=== PATIENT | female | born 1965 | race Caucasian/White ===

== ENCOUNTER → 2022-10-17 | Outpatient (CLI) | payer BC ==
--- NOTE | 2022-10-17 13:12 | MR ---
EXAMINATION TYPE: MR knee LT wo con DATE OF EXAM: 10/17/2022 COMPARISON: Outside left knee x-ray September 24, 2022 HISTORY: Left knee pain, injury 5 weeks ago. TECHNIQUE: Multiplanar, multisequence images of the knee is performed without IV contrast. FINDINGS: MEDIAL MENISCUS: Anterior and posterior horns are intact without tear. LATERAL MENISCUS: Anterior and posterior horns are intact without tear. CRUCIATE LIGAMENTS: The anterior and posterior cruciate ligaments are intact and unremarkable. COLLATERAL LIGAMENTS: The medial collateral ligament and lateral collateral ligament complex are inta ct and unremarkable. EXTENSOR MECHANISM: Visualized quadriceps and patellar tendons are intact. EFFUSION: No significant suprapatellar joint effusion. POPLITEAL CYST: Small size popliteal/rivera cyst. Just superior to this there is multi septated cystic change probable ganglion cyst posterior to the distal femoral metaphysis medially. TRICOMPARTMENT SPACES: Mild to moderate narrowing and spurring patellofemoral compartment. Mild to mo derate narrowing medial greater than lateral tibiofemoral compartments. CARTILAGE: Some cartilaginous loss and fissuring along the posterior patellar pole greatest medially. BONE MARROW SIGNAL: Areas of heterogeneous increased T2 signal involving the anterior medial tibial p lateau articular surface with a subtle linear diminished T1 signal seen best sagittal image 11. OTHER: No additional significant abnormality is appreciated. IMPRESSION: 1. There is a nondisplaced subtle subchondral fracture or injury to the anterior aspect of the medial tibial plateau with associated surrounding osseous contusion injury. No significant step-off is note d. 2. Mild to moderate tricompartment degenerative changes greatest patellofemoral compartment as detail ed above. 3. Small popliteal cyst.
== END | disposition home or self-care (01) ==
LOC: RADMRIMAIN 11:55
PROVIDERS: ATTEND Orthopaedic Surgery
DX: S80.02XA Contusion of left knee, initial encounter (principal); M17.12 Unilateral primary osteoarthritis, left knee; M71.22 Synovial cyst of popliteal space [Baker], left knee

== ENCOUNTER 2022-12-24 06:28 | Day surgery (SDC) | payer BC ==
--- NOTE | 2022-12-23 12:34 | P.HPOR ---
History of Present Illness H&P Date: 12/23/22 Subjective: This is a 57 year old female that presents today for initial evaluation regarding a several year history of progressively worsening right and left hand paresthesias in the thumb, index, middle and ring fingers with the right side being much more severe than the left. She also notes a 1 year history of left middle finger locking, catching and clicking. The patient has tried braces and NSAIDs with little relief. She says her right hand is constantly numb and wakes her up from sleep at night. They deny any inciting event or neck pain. Physical Examination: RUE: AIN/PIN/Radial/Ulnar/Median motor intact. Radial/Ulnar/Median SILT. 2+/4 Radial/Ulnar pulses palpated. 4/5 APB, 5/5 FDI. Negative Finkelsteins, negative CMC grind, positive Durkan's compression. LUE: AIN/PIN/Radial/Ulnar/Median motor intact. Radial/Ulnar/Median SILT. 2+/4 Radial/Ulnar pulses palpated. 5/5 APB, 5/5 FDI. Negative Finkelsteins, negative CMC grind, positive Durkan's compression. TTP over A1 rosanna with locking and catching of digit with ROM. Impression: 1.) Right carpal tunnel syndrome 2.) Left carpal tunnel syndrome 3.) Left middle finger trigger finger Plan: Diagnosis and treatment options were discussed with the patient. The patient has failed conservative treatment and would like to pursue a right endoscopic vs open carpal tunnel release. Risks and benefits of surgery including bleeding, infection, damage to surrounding tissue, need for further surgery, possible need to convert to open procedure, residual numbness were discussed and the patient wished to go forward with surgery. She would like to hold off on any treatment for the left side until she is healed on her right side. Pre-op labs are ordered. CC: Sara Serrano DO Orthopedic Hand/Upper Extremity Surgeon Past Medical History Past Medical History: GERD/Reflux, Musculoskeletal Disorder Additional Past Medical History / Comment(s): Crohn's disease History of Any Multi-Drug Resistant Organisms: None Reported Past Surgical History: Appendectomy, Bowel Resection, Section, Cholecystectomy, Uterine Ablation Additional Past Surgical History / Comment(s): C/S x4, D & C, bowel resection x2, explorary laparotomies Past Anesthesia/Blood Transfusion Reactions: No Reported Reaction Additional Past Anesthesia/Blood Transfusion Reaction / Comment(s): doesn't require much anesthesia or is slow to wake up Smoking Status: Current every day smoker Medications and Allergies Home Medications Medication Instructions Recorded Confirmed Type Calcium Carbonate [Calcium] 600 mg PO DAILY 12/19/22 12/19/22 History Cholecalciferol [Vitamin D3 (25 25 mcg PO DAILY 12/19/22 12/19/22 History Mcg = 1000 Iu)] Cyanocobalamin (Vitamin B-12) 1,000 mcg PO DAILY 12/19/22 12/19/22 History [Vitamin B-12] Folic Acid 0.4 mg PO DAILY 12/19/22 12/19/22 History Omeprazole [PriLOSEC] 20 mg PO HS 12/19/22 12/19/22 History Ustekinumab [Stelara] 90 mg SQ Q30D 12/19/22 12/19/22 History Allergies Allergy/AdvReac Type Severity Reaction Status Date / Time adalimumab [From Humira] Allergy caused Verified 12/19/22 09:31 lupus symptoms Physical Examination Osteopathic Statement: *. No significant issues noted on an osteopathic structural exam other than those noted in the History and Physical/Consult.
[2022-12-24] MEDS ORDERED: ONDANSETRON 4 MG/2 ML VIAL IVP ONE (06:46)
[2022-12-24] MEDS ORDERED: LACTATED RINGERS 1,000 ML IV SCH (06:46)
[2022-12-24] MEDS ORDERED: DEXAMETHASONE SOD PHOSPHATE 4 MG/ML 1 ML VIAL IV ONE (06:46)
[2022-12-24] MEDS ORDERED: LIDOCAINE 1% (10MG/ML) FOR IV START INTRADERMA PRN (06:46)
[2022-12-24] MEDS ORDERED: MIDAZOLAM 2 MG/2 ML VIAL IV PRN (07:00)
[2022-12-24] MEDS ORDERED: HYDROmorphone 0.5 MG/0.5 ML SYRINGE IVP PRN (07:00)
[2022-12-24 07:09] LABS: Glucose,Whole Blood 114 mg/dL (70-110)
[2022-12-24 07:10] VITALS: TEMP 97.8
[2022-12-24] MEDS ORDERED: BUPIVACAINE (PF) 0.5% 30 ML VIAL SQ ONE ×2 (07:24→07:38)
[2022-12-24] MEDS ORDERED: fentaNYL (PF) 50 MCG/ML 2 ML AMP ONE (07:26)
[2022-12-24] MEDS ORDERED: PROPOFOL 10 MG/ML 20 ML VIAL IV ONE (07:26)
[2022-12-24] MEDS ORDERED: MIDAZOLAM 2 MG/2 ML VIAL ONE (07:26)
[2022-12-24] MEDS ORDERED: LIDOCAINE 2% (PF) 20 MG/ML 10 ML AMP SQ ONE (07:26)
[2022-12-24] MEDS ORDERED: LIDOCAINE 2% INJ 20 MG/ML SQ ONE (07:38)
--- NOTE | 2022-12-24 07:48 | P.OP ---
Date of Procedure: 12/24/22 Preoperative Diagnosis: Right carpal tunnel syndrome Postoperative Diagnosis: Right carpal tunnel syndrome Procedure(s) Performed: Right endoscopic carpal tunnel release Anesthesia: MAC Surgeon: Julien Serrano Estimated Blood Loss (ml): 0 Pathology: none sent Condition: stable Disposition: PACU Description of Procedure: This is a 57 year old female who presents today for a right endoscopic carpal tunnel release after having failed conservative treatment in the past. Risks and benefits of surgery were discussed with the patient including bleeding, damage to surrounding tissue, infection, need to convert to open procedure, need for further surgery as well as risks of anesthesia including pulmonary embolism and even and the patient wished to proceed with surgical intervention. The patients was seen in the pre-operative area by myself. Consent and H&P were completed and updated. The correct extremity was marked in the pre-operative area by myself and all other questions were answered. Operative Narrative: The patient was brought to the operating room by the department of anesthesia. They remained on the portable stretcher and a rolling hand table was brought to the side of the operative extremity. Pre-operative time out was performed indicating the correct patient, procedure and laterality. All in the room agreed. The patient was then drifted off to sleep by the department of anesthesia. MAC anesthesia was utilized and a 50:50 mixture of 1% Lidocaine and 0.5% bupivacaine was injected into the subcutaneous tissues of the palmar skin, 8ccs total. A nonsterile tourniquet was then applied to the operative extremity and the right upper extremity was then prepped and draped in normal sterile fashion. The operative extremity was the exsanguinated with an esmarch bandage and the tourniquet was inflated to 250mmHg. 15 blade scalpel was utilized to make a transverse incision on the palmar skin just ulnar to the palmaris longus tendon at the level of the distal wrist crease. Ragnell retractor was then placed radially and blunt dissection was performed to reveal the distal forearm fascia. This was lifted with fine Krunal pick ups and Littler tenotomy scissors were then used to open the forearm fascia transversely and a double skin hook was then placed. Hamate finder was placed into the carpal tunnel and then sequential sized dilators were inserted followed by the synovial elevator to separate the flexor tenosynovium from the undersurface of the transverse carpal ligament and a washboard texture was felt. The Micro[employer]ire endoscopic carpal tunnel release system gun was the then inserted into the carpal tunnel hugging the deep portion of the transverse carpal ligament in line with the base of the ring finger. Transverse fibers of the ligament were directly visualized. Pressure was applied on the palm to reveal t he distal extent of the transverse carpal ligament. The blade was then deployed and the distal half of the transverse carpal ligament was released. The scope was then brought distal again and remaining transverse fibers were incised with the blade. The proximal half of the transverse carpal ligament was then divided and again the scope was advanced distal and remaining transverse fibers were incised with the blade. The radial and ulnar leaflets were directly visualized and mobile consistent with complete release. Tenotomy scissors were then utilized to release the remaining distal forearm fascia under direct visualization taking care to preserve the palmar cutaneous branch of the median nerve. Skin closure was performed with interrupted 4-0 Monocryl suture followed by Mastisol and steri strips. Sterile dressing was applied consisting of adaptic, 4x4s, Webril, and an roland bandage. Tourniquet was let down and the hand immediately was well perfused. The patient was then woken by the department of anesthesia and transferred to PACU in stable condition. Julien Serrano D.O. Orthopedic Hand/Upper Extremity Surgeon
[2022-12-24 08:07] VITALS: RESP 16
[2022-12-24 08:30] VITALS: BP 112/77; PULSE 80
== END 2022-12-24 08:36 | disposition home or self-care (01) ==
LOC: OR 06:28
PROVIDERS: ATTEND Orthopaedic Surgery Hand Surgery
DX: G56.01 Carpal tunnel syndrome, right upper limb (principal); M65.332 Trigger finger, left middle finger; K21.9 Gastro-esophageal reflux disease without esophagitis; K50.90 Crohn's disease, unspecified, without complications; Z90.49 Acquired absence of other specified parts of digestive tract; Z98.890 Other specified postprocedural states; F17.210 Nicotine dependence, cigarettes, uncomplicated; Z79.899 Other long term (current) drug therapy; Z88.8 Allergy status to other drugs, medicaments and biological substances; F32.9 Major depressive disorder, single episode, unspecified
CPT/HCPCS: 29848; J2001; J2250; J1100; J0690; J2405; J3010; J2704; J0665